=== PATIENT | male | born 1960 | race Caucasian/White ===

== ENCOUNTER 2020-04-14 16:00 | Outpatient (RCR) | payer BC, SELFPAY ==
--- NOTE | 2020-03-01 17:06 | OTREVAL_ITS ---
Dr. Dominic Leung MD, It has been my pleasure to treat YASMANY MANZO over the last 3 visits for right ulnar nerve lesion. Please see the progress note below for an update on the occupational therapy plan of care! Subjective: pt arrives to session since 02/14/20- pt reports he has been doing his exercises and is back to work- work is ok- still compensating for lack of strength- states ADLS are better- LF still difficult to move into his RF- (adduction of LF) Objective/Function: pt demo with a increase in sensation with monofilament testing- increase from 4.08 to 3.61. 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 pt has made good gains on his own- nerve is demo with return as pts improvements indicate- pt would benefit from cont. skilled OT services at this time. Plan Frequency: 1-2x /Week Duration: 4 Weeks Plan: cont to increase pts functional strength with BTE- check sensation and muscle Goals - Goals Patient Goals: Regain Strength, Use Hand/Wrist/Arm Normally Again, Decrease Tingling/Numbness, Be More Independent in ADLS Goal:: PT will demo an increase in tarp repairer strength by 30# to increase independent with basic occupations of daily living to return pt to PLOF by D/C. Pt will demo an increase in lateral and tripod pinch by 4# to increase pts independent with opening baggies, containers at PLOF by D/C. Goal:: pt will demo understanding of scar mtg by end of 2nd session. Anticipated Interventions Anticipated Interventions: Strengthening, Edema Control, Scar Care, Triggerpoint Release, Sensory Retraining, Modalities, Orthoses, Fine Motor Coord/Ten Please do not hesitate to contact me at [phone] by phone or if you have questions or concerns regarding this new plan of care! Sincerely, Traci Escoto, OTR/L, CHT
--- NOTE | 2020-03-01 17:06 | HP.OTEVAL ---
Patient's Visit Information YASMANY MANZO is a 59 year old M, referred to Occupational Therapy by Dr. Dominic Leung MD, with a diagnosis of right ulnar nerve lesion. 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 pt states tingling/numbness. pt underwent tx with family drLorna and after conservative treatment pt opted for ulnar sx. pt states right LF/RF numbness- weakness. no ability to adduct LF. pt ready to get his strength back to retun to his PLOF. 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 - ROM Elbow: right 145/0 left 145/0 - Strength Fashion Editor: right 40# left 80# Lateral Pinch: right 2# left 8# Tripod Pinch: right 2# left 10# - Sensation Thumb: right 3.22 left 3.22 Index: right 3.22 left 3.22 Middle: right 4.08 left 3.22 Ring: right 4.08 left 3.22 Little: right 4.08 left 3.22 - Quick DASH-Disab of Arm,Shoulder& Hand Quick DASH Score: 33.3325 - Goals Goal:: PT will demo an increase in registered safety engineer strength by 30# to increase independent with basic occupations of daily living to return pt to PLOF by D/C. Pt will demo an increase in lateral and tripod pinch by 4# to increase pts independent with opening baggies, containers at PLOF by D/C. Goal:: pt will demo understanding of scar mtg by end of 2nd session. - Rehabilitation General Assessment: Pt s/p 2 weeks from ulnar nerve decompression sx. pt demo with weakness thoughout the ulnar nerve distribution with muscle waisting. pt limited with pinch and registered safety engineer strength limiting pts Ind with ADls and IADls. Pt would benefit from skilled OT services 1-2x week for 4 weeks to return pt to PLOF. Today therapist ed. pt on ulnar nerve glides s/p and hand strengthening tasks. pt demo understanding and agree to POC. Rehabilitation Potential: Good - Anticipated Interventions Strengthening, Edema Control, Scar Care, Triggerpoint Release, Sensory Retraining, Modalities, Orthoses, Fine Motor Coord/Ten - Visit Plan Frequency: 1-2x /Week Duration: 4 Weeks General Plan: initiate registered safety engineer and pinch strength with BTE and a HEP- pt has resisitve therapy ball along with hand gripper. Therapist ed pt on strenthening PAD,DAPs of hand. TEXT: Thank you for the opportunity to evaluate your patient. For Medicare and Medicare HMO plans, please review the plan of care and approve it. It will need to be FAXED BACK to us at [phone] for Medicare purposes. Please let me know if there are questions or concerns regarding this plan of care. Physician Signature: Date:
--- NOTE | 2020-03-19 07:52 | HP.OTREVAL ---
Dr. Dominic Leung MD, It has been my pleasure to treat YASMANY MANZO over the last 5 visits for right ulnar nerve lesion. Please see the progress note below for an update on the occupational therapy plan of care! Subjective: pt continues to use right hand as able- pt continues to have difficulty with strength limiting him with ADls Objective/Function: right LF as no adduction and weak muscles of ulnar nerve. 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 right lateral pinch 8#. right tripod pinch 6#. right LF sensation at 3.84. right RD 3.61. sensation has improved some- pt demo full ROM- would rec'd cont with PRE to increase strength- Plan Frequency: 1-2x /Week Duration: 4 Weeks Plan: cont to increase pts functional strength with BTE- check sensation and muscle Goals - Goals Patient Goals: Regain Strength, Use Hand/Wrist/Arm Normally Again, Decrease Tingling/Numbness, Be More Independent in ADLS Goal:: PT will demo an increase in administrative library assistant strength by 30# to increase independent with basic occupations of daily living to return pt to PLOF by D/C. Pt will demo an increase in lateral and tripod pinch by 4# to increase pts independent with opening baggies, containers at PLOF by D/C. Goal:: pt will demo understanding of scar mtg by end of 2nd session. Anticipated Interventions Anticipated Interventions: Strengthening, Edema Control, Scar Care, Triggerpoint Release, Sensory Retraining, Modalities, Orthoses, Fine Motor Coord/Ten Please do not hesitate to contact me at [phone] by phone or if you have questions or concerns regarding this new plan of care! Sincerely, Traci Escoto, HELENR/L, CHT
--- NOTE | 2020-04-14 16:30 | HP.OTDCSUM_ITS ---
It has been my pleasure to treat YASMANY MANZO under orders from Dr. Dominic Leung MD, for the diagnosis of right ulnar nerve lesion for a total of 9 visit(s). Please see the following information for a summary of their discharge status. % Improvement: 90 Objective/Function: right body and frame technician strength 58# a increase from 40#. monofilament testing all digits 2.83 is WNL. right LF 3.22 one monofilament away from Normal sensation. right lateral pinch 14# a increase from 2#. right tripod pinch 10# a increase from 2#. right LF adduction still limted - pt will cont with HEP. and if a concern arises he will return to DrLorna for further assessment. Patient Goals: Regain Strength, Use Hand/Wrist/Arm Normally Again, Decrease Tingling/Numbness, Be More Independent in ADLS Goal:: PT will demo an increase in body and frame technician strength by 30# to increase independent with basic occupations of daily living to return pt to PLOF by D/C. Pt will demo an increase in lateral and tripod pinch by 4# to increase pts independent with opening baggies, containers at PLOF by D/C. Goal:: pt will demo understanding of scar mtg by end of 2nd session. Plan: D/C Discharge Comments: pt was seen for 9 vists following a right ulnar nerve tra nsposition. pt has made great gains with is strength and muscle return. pt has met OT goals and will cont. with HEP to cont. to make gains with strength. If there are questions or concerns regarding this patient's occupational therapy, please fell free to call me at [phone]. Thank you for the referral of this patient. Sincerely, Traci Escoto, OTR/L, CHT
== END 2020-04-14 19:00 | disposition home or self-care (01) ==
LOC: OT 16:00
PROVIDERS: PCP Preventive Medicine Occupational Medicine; Referring Provider Specialist; Visit Provider Specialist
DX: G56.21 Lesion of ulnar nerve, right upper limb (principal)
CPT/HCPCS: 97110; 97165; 97530